=== PATIENT | male | born 1970 | race Caucasian/White ===

== ENCOUNTER 2020-09-11 10:31 | Emergency (ER) | payer OTHER, SELFPAY ==
[2020-09-11 10:45] VITALS: BP 132/79; PULSE 84; RESP 16; TEMP 36.4; O2SAT 98; BMI 34.2
--- NOTE | 2020-09-11 10:58 | PC.NURSE ---
wont allow an order to be put in for TDAP due to pulling before submitting the order. [id number]
--- NOTE | 2020-09-11 11:25 | HMH.EDUTC ---
[facility] Disposition Clinical Impression: Finger laceration Qualifiers: Encounter type: initial encounter Finger: index finger Damage to nail status: without damage Foreign body presence: without foreign body Laterality: left Qualified Code(s): S61.211A - Laceration without foreign body of left index finger without damage to nail, initial encounter Disposition: Home, Self-Care Condition on Discharge: Good Instructions: How to Care for a Laceration After Repair, DI for Laceration Repair -- Simple, DI for Laceration Repair -- Finger Additional Instructions: Suture instructions: You have required stitches today. Please read the following instructions so you know how to care for them: 1. Keep wound area dry for the first 24 hours. 2 May clean gently with mild soap and water, after 48 hours to prevent crusting over suture knots. 3. You may shower if your provider gives permission but do not take a bath until the skin is healed.. 4. Never leave a wet dressing or Band-Aid on your stitches as this allows bacteria to reach the area and may cause infection. Band-aids can cause the wound to sweat and not recommended to wear for long periods of time Watch for signs of infection: Increasing redness, tenderness or warmth around the suture site Unusual swelling around the site Appearance of pus around each suture or any red streaks Fever If you develop any of the above signs or symptoms of infection, Follow up with Family Physician immediately 5. Suture removal in _10-12___days 6. Return to [facility] or follow up with family doctor for removal. This can be done by any medical provider during regular hours on Sunday through Sunday, by appointment. Prescriptions: Amoxicillin/Potassium Clav [Augmentin 875-125 Tablet] 1 tab PO Q12H 7 Days #14 tab Transmission Status: Received by [facility] #[id number] Referrals: Provider,Referral, [Primary Care Provider] - As needed Time of Disposition: 11:31 Medical Decision Making - Jass Inquiry Pt receiving controlled substance: No Jass was queried for this patient: No Vital Signs: 09/11/20 10:45 09/11/20 11:39 Temperature 97.6 F 98.3 F Temperature Source Tympanic Pulse Rate 83 Pulse Rate [Right] 84 Respiratory Rate 16 17 Blood Pressure 129/76 Blood Pressure [Right Arm] 132/79 Blood Pressure Mean [Right Arm] 96 02 Sat by Pulse Oximetry 98 Orders (Tests/Meds): ED MEDICATIONS Discontinued Medications Generic Name Dose Route Start Last Admin Trade Name Charisse PRN Reason Stop Dose Admin Lidocaine HCl 5 ml 09/11/20 10:52 09/11/20 10:56 Lidocaine 1% 5ml Pf Vial IJ 09/11/20 10:53 5 ml ONCE ONE Administration Medical Decision Narrative: Patient had flap like laceration to left index finger on side of finger between first and second joint able to feel light and sharp touch denies numbness able to bed finger easily [facility] HPI - General Stated complaint: left index finger laceration Time Seen by Provider: 09/11/20 10:50 Mode of Arrival: Ambulatory Source of Information: Patient Limitations: No Limitations Description of Symptoms (Recalled from Triage Doc. by RN): pt states he was cutting a chickens head off and sliced through to his L index finger. There is a skin flap about his second knuckle and is still bleeding. pressure dressing applied. HEENT Symptoms (Recalled from RN notes): No Resp Symptoms (Recalled from RN notes): No Skin Symptoms (Recalled from RN notes): Yes (lac on L index finger about the second knuckle) MS Symptoms (Recalled from RN notes): No Functional Status (Recalled from RN notes): na - History of Present Illness Provider Complaint: Patient states that he was killing a chicken and cutting its head off with sharp knife when the knife went through the chickens head and sliced his left index finger State that he noticed it looked like a flap and he immediately applied pressure and came in Denies numbness able to move finger easily - Relate
[2020-09-11 11:39] VITALS: BP 129/76; PULSE 83; RESP 17; TEMP 36.8
== END 2020-09-11 11:41 | disposition home or self-care (01) ==
PROVIDERS: Emergency Provider Nurse Practitioner
DX: S61.211A Laceration without foreign body of left index finger without damage to nail, initial encounter (principal); W26.0XXA Contact with knife, initial encounter; Y92.71 Barn as the place of occurrence of the external cause
CPT/HCPCS: 12001; 99202; G0463

== ENCOUNTER 2020-09-24 09:06 | Emergency (ER) | payer OTHER, SELFPAY ==
[2020-09-24 09:10] VITALS: BP 144/77; PULSE 96; RESP 18; TEMP 36.6; O2SAT 97; BMI 34.2
[2020-09-24 09:15] VITALS: BP 144/77; PULSE 96; RESP 18; TEMP 36.6; O2SAT 97
== END 2020-09-24 09:17 | disposition home or self-care (01) ==
LOC: UTC 09:08
PROVIDERS: Emergency Provider Nurse Practitioner
DX: S61.211D Laceration without foreign body of left index finger without damage to nail, subsequent encounter (principal)